=== PATIENT | female | born 1995 | race Caucasian/White ===

== ENCOUNTER 2022-07-28 13:08 | Emergency (ER) | payer BC, MEDICAID, SELFPAY ==
[2022-07-28 13:08] VITALS: BP 125/82; PULSE 107; RESP 18; TEMP 37.6; O2SAT 96; BMI 40.0
--- NOTE | 2022-07-28 13:42 | XRR_ITS ---
PROCEDURE INFORMATION: Exam: XR Chest Exam date and time: 07/28/2022 1:56 PM Age: 26 years old Clinical indication: Cough, fever and wheezing. TECHNIQUE: Imaging protocol: Radiologic exam of the chest. Views: 1 view. COMPARISON: No relevant prior studies available. FINDINGS: Lungs: No pulmonary consolidation. Pleural spaces: No pleural effusion. No pneumothorax. Heart/Mediastinum: The cardiac silhouette is unremarkable. No gross evidence of pneumomediastinum. Bones/joints: No gross fracture. XR/XR chest 1V portable [id number] IMPRESSION: No acute cardiopulmonary abnormality identified.
--- NOTE | 2022-07-28 13:44 | W.ED.URI ---
HPI - URI/Sore Throat General: Chief Complaint: Upper Respiratory Infection Stated Complaint: fever, congestion Time Seen by Provider: 07/28/22 13:33 History of Present Illness: 26-year-old female comes in today with complaints of cough and congestion starting yesterday. Patient's had a fever up to 103 reported from home. Patient does have some wheezing in lung burrell and reports a history of bronchial asthma in her youth. Patient has a child. Patient reports some nausea and vomiting. Associated symptoms: Reports fever(s), nausea and vomiting; Deny chest pain Review of Systems Const: Reports: fever(s) Card: Denies: chest pain Resp: Reports: dyspnea, non-productive cough and wheezing GI: Reports: nausea and vomiting Skin/Breast: Denies: rash [facility] Female Reproductive History: Date of last menstrual period: 06/29/22 Physical Exam Const: COMMON NORMALS: patient oriented x3 HENMT: COMMON NORMALS: TM's normal bilaterally TYMPANIC MEMBRANE: TM's normal bilaterally THROAT: posterior oropharynx abnormal erythema Neck/C-Spine: COMMON NORMALS: no lymphadenopathy Resp: COMMON NORMALS: normal respiratory effort AUSCULTATION: wheezes Cardio: COMMON NORMALS: regular rhythm RATE: tachycardic RHYTHM: regular rhythm Extremity: COMMON NORMALS: normal to inspection Neuro: COMMON NORMALS: patient oriented x3 Skin: COMMON NORMALS: turgor normal GENERAL SKIN EXAM: turgor normal Course Vital Signs: Vital signs: Vital Signs Temperature 99.7 F H 07/28/22 14:25 Pulse Rate 95 07/28/22 14:32 Respiratory Rate 20 H 07/28/22 14:28 Blood Pressure 125/82 07/28/22 14:25 Pulse Oximetry 96 07/28/22 14:28 Oxygen Delivery Id thod 07/28/22 14:28 MDM - URI/Sore Throat Medical Decision Making Patient comes in today for complaints of fever starting last night along with nausea and vomiting cough and congestion. On exam lungs had wheezing throughout all burrell. Skin was warm and dry. Vital signs noted a pulse rate of 107, and temperature of 99.7. Differential diagnosis includes but not limited to viral syndrome, influenza, COVID-19, pneumonia, exacerbation of asthma. Patient does have a history of bronchial asthma in her youth. Influenza was positive for type A. Reviewed exam with patient with recommendations for treatment for mild dehydration with 1 L of IV fluid, Zofran. For exacerbation of asthma due to viral syndrome patient was given 10 mg of dexamethasone and will be continued on albuterol inhaler as needed. Patient was encouraged to drink plenty of fluids use Zofran for nausea vomiting. Patient reported understanding of care plan need for follow-up or return to the ER. Lab Data Radiology Impressions Chest X-Ray 07/28/22 13:42 IMPRESSION: No acute cardiopulmonary abnormality identified. Laboratory Results Influenza Type A Ag positive (Negative) 07/28/22 13:45 Influenza Type B Ag negative (Negative) 07/28/22 13:45 SARS-CoV-2 Ag (Rapid) negative (Negative) 07/28/22 13:45 Discharge Plan Discharge Patient Disposition: Home Clinical Impression: Influenza Condition: Stable Prescriptions: New ondansetron 4 mg tablet,disintegrating 4 mg PO Q8H PRN (Reason: nausea and vomiting) Qty: 10 0RF albuterol sulfate 90 mcg/actuation HFA aerosol inhaler 2 inh inhalation Q4H PRN (Reason: shortness of breath or wheezing) Qty: 16 0RF Discharge Orders: Discharge ED (Routine); Ordered 07/28/22 Ordered By: Skyler Tam Discharge Diet: Usual diet Discharge Activity: Increase activity as tolerated Patient Instructions: Influenza (ED) Activity Restrictions/Additional Instructions: Drink plenty of water and fluids. Use acetaminophen and ibuprofen for pain and fever. Is important to stay well-hydrated. Use albuterol inhaler 1 or 2 puffs every 4 hours as needed for cough or wheezing. Follow-up with primary care in 3 to 4 days for recheck. Usually with the influenza virus your fever will break and 3 to 5 days. It is important to stay as hydrated as possible. Return to the ED for inability to hold fluids down, chest pain, increased shortness of breath, or new concerns. Stand Alone Forms: Work/School Release Coding Level of Care Code ED Master Naval Parachutist for Twin Fwcristi Exam Detailed
[2022-07-28] MEDS: sodium chloride 0.9% 1,000 ML 999 ML IV (14:06)
[2022-07-28] MEDS: ondansetron 2 mg/ML SDV 2 mL 4 MG IVP (14:07)
[2022-07-28] MEDS: dexamethasone 10 mg/mL INJ IVP (14:08)
[2022-07-28 14:23] LABS: Influenza A by IFA positive (Negative); Influenza B by IFA negative (Negative)
[2022-07-28 14:25] VITALS: BP 125/82; PULSE 107; RESP 18; TEMP 37.6; O2SAT 96
[2022-07-28] MEDS: ipratropium-albuterol 3 mL Neb INHALATION (14:27)
[2022-07-28 14:28] VITALS: PULSE 90; RESP 20; O2SAT 96
[2022-07-28 14:32] VITALS: PULSE 95
[2022-07-28 14:32] LABS: SARS Covid-2 Antigen negative (Negative)
[2022-07-28 15:11] VITALS: PULSE 95
== END 2022-07-28 15:12 | disposition home or self-care (01) ==
PROVIDERS: Emergency Provider Nurse Practitioner Family
DX: J10.1 Influenza due to other identified influenza virus with other respiratory manifestations (principal); J45.901 Unspecified asthma with (acute) exacerbation; E86.0 Dehydration
CPT/HCPCS: 71045; 87426; 87804; 94640; 96374; 96375; 99284; J1100; J2405; J7030

== ENCOUNTER 2022-07-30 03:10 | Emergency (ER) | payer BC, MEDICAID, SELFPAY ==
[2022-07-30 03:11] VITALS: BMI 40.0
[2022-07-30 03:16] VITALS: BP 155/66; PULSE 90; RESP 18; TEMP 36.7; O2SAT 97
--- NOTE | 2022-07-30 03:18 | ECG_ITS ---
[facility] Test Date: 2022-07-30 Pat Name: Bambi Vail Department: Room: Gender: Female Scrap Baller: : 1995 Requested By: Joe Ritter Order Number: [id number] Demario MD: Gloria Boucher M.D. Measurements Intervals [place] Rate: 81 P: 14 MT: 143 QRS: 7 QRSD: 95 T: 1 QT: 367 QTc: 427 Interpretive Statements SINUS RHYTHM WITH SINUS ARRHYTHMIA NONSPECIFIC ST & T-WAVE ABNORMALITY No previous ECG available for comparison Electronically Signed On 07-31-2022 12:04:43 WEAVER HAND LOOM by Gloria Boucher M.D. [id number]
--- NOTE | 2022-07-30 03:19 | XRR_ITS ---
PROCEDURE INFORMATION: Exam: XR Chest Exam date and time: 07/30/2022 3:44 AM Age: 26 years old Clinical indication: Cough and shortness of breath; Additional info: SOB TECHNIQUE: Imaging protocol: Radiologic exam of the chest. Views: 1 view. COMPARISON: CR (CHEST, ) 07/28/2022 1:56 PM FINDINGS: Lungs: Normal lung volumes. No interstitial or airspace opacities. Pleural spaces: No pleural effusion. No pneumothorax. Heart/Mediastinum: Normal heart size. Normal mediastinal contour. Midline trachea. Bones/joints: No acute abnormalities. XR/XR chest 1V portable [id number] IMPRESSION: No chest radiographic evidence of acute cardiopulmonary disease.
--- NOTE | 2022-07-30 03:21 | W.ED.SOB ---
HPI - SOB/Dyspnea General: Chief Complaint: Shortness of Breath/Dyspnea Stated Complaint: asthma attack Time Seen by Provider: 07/30/22 03:18 History of Present Illness: HPI Narrative: 26-year-old female with a history of asthma. She presents this morning of worsening shortness of breath. She was seen yesterday, and diagnosed with influenza A. She has been using her inhaler for the past 24 hours without much improvement. She has had a cough that is nonproductive. In route by EMS, she received 125 mg of Solu-Medrol, 0.5 mg of epinephrine subcu, and a DuoNeb treatment. MD elicited complaint: shortness of breath, cough and asthma attack Pertinent past history: asthma Onset (ago): hour(s) Context: recent illness Timing: constant and progressively worsening Severity: moderate Exacerbating factors: lying flat, exertion and coughing Relieving factors: nothing Known history of: asthma Associated symptoms: Reports chest congestion, cough, dizziness and nausea; Deny abdominal pain, chest pain, fever(s) or vomiting Treatment prior to arrival: bronchodilator and other Review of Systems Const: Denies: fever(s) ENMT: Reports: throat pain Card: Denies: chest pain Resp: Reports: dyspnea, non-productive cough and chest congestion GI: Reports: nausea; Denies: abdominal pain or vomiting Neuro: Reports: headache(s) and dizziness [facility] ED Female Reproductive History: Date of last menstrual period: 06/29/22 Physical Exam Const: GENERAL APPEARANCE: cooperative, in distress and ill appearing; not frail appearing HENMT: COMMON NORMALS: normocephalic, atraumatic and Normal external nose present HEAD & SCALP: normocephalic and atraumatic FACE & SINUS: normal facial exam and face symmetric NOSE: Normal external nose present Eye: COMMON NORMALS: Equal, round and reactive pupils present and EOMs intact bilaterally PUPIL: Yes Equal, round and reactive pupils present Neck/C-Spine: COMMON NORMALS: full ROM GENERAL: Yes trachea midline Chest: CHEST: Yes Symmetrical chest wall rise Resp: COMMON NORMALS: clear to auscultation bilaterally EFFORT & INSPECTION: No able to speak in complete sentences, Yes tachypneic, Yes labored and Yes uses accessory muscles AUSCULTATION: clear to auscultation bilaterally and diminished lung sounds Cardio: COMMON NORMALS: regular rhythm RATE: tachycardic RHYTHM: regular rhythm Extremity: COMMON NORMALS: normal to inspection and no pedal edema Neuro: LILIANA COMA SCALE: document GCS findings [place] coma scale eye opening: Spontaneous [place] coma scale verbal response: Orientated Liliana coma scale motor response: Obey commands [place] coma scale total score: 15 Course Vital Signs: Vital signs: Vital Signs Temperature 98.1 F 07/30/22 03:16 Pulse Rate 91 07/30/22 03:26 Respiratory Rate 18 07/30/22 03:23 Blood Pressure 155/66 07/30/22 03:16 Pulse Oximetry 97 07/30/22 03:23 Oxygen Delivery Me thod 07/30/22 03:23 MDM - SOB/Dyspnea Medical Decision Making 26-year-old female. She presents with shortness of breath. She was here yesterday for the same reason. Breathing is much better after Solu-Medrol, epinephrine and DuoNeb in route, albuterol treatment here, magnesium infusion. Respiratory rate is normal now. Saturations are 94 to 98%. Her heart rate has come down. Her EKG shows sinus rhythm with a rate of 81, normal axis, no acute ST changes. She does meet LVH criteria chest x-ray is negative. We will hold for a bit to ensure she does not rebound after the epinephrine, albuterol, etc. We will discharge home on steroids and antivirals given flu positive status. Lab Data : 07/30/22 03:19 07/30/22 03:19 Labs/Radiology: Laboratory Results WBC 5.6 10^3/uL (4.0-10.0) 07/30/22 03:19 RBC 4.06 10^6/uL (4.1-5.3) L 07/30/22 03:19 Hgb 11.4 g/dL (11.5-15.3) L 07/30/22 03:19 Hct 36.0 % (37.0-47.0) L 07/30/22 03:19 MCV 88.7 fl (81-99) 07/30/22 03:19 MCH 28.1 pg (28.0-34.0) 07/30/22 03:19 MCHC 31.7 g/dL (30.0-36.0) 07/30/22 03:19 RDW 14.6 % (12.1-15.1) 07/30/22 03:19 Plt Count 186 10^3/cmm (130-400) 07/30/22 03:19 MPV 11.0 fL (7.4-10.4) H 07/30/22 03:19 Neut % (Auto) 56.4 % 07/30/22 03:19 Lymph % (Auto) 31.8 % 07/30/22 03:19 [place] % (Auto) 10.8 % 07/30/22 03:19 Eos % (Auto) 0.4 % 07/30/22 03:19 Baso % (Auto) 0.2 % 07/30/22 03:19 Neut # (Auto) 3.18 10^3/uL (1.8-7.7) 07/30/22 03:19 Lymph # (Auto) 1.8 10^3/uL (0.8-4.8) 07/30/22 03:19 [place] # (Auto) 0.6 10^3/uL (0.2-0.9) 07/30/22 03:19 Eos # (Auto) 0.0 10^3/uL (0.0-0.8) 07/30/22 03:19 Baso # (Auto) 0.0 10^3/uL (0.0-0.1) 07/30/22 03:19 Nucleated RBC % (auto) 0 % 07/30/22 03:19 Nucleated RBCs # 0.0 /100WBC 07/30/22 03:19 Sodium 136 mmol/L (136-145) 07/30/22 03:19 Potassium 3.5 mmol/L (3.5-5.1) 07/30/22 03:19 Chloride 104 mmol/L (98-107) 07/30/22 03:19 Carbon Dioxide 20 mmol/L (22-29) L 07/30/22 03:19 Anion Gap 15.5 (5-19) 07/30/22 03:19 BUN 19 mg/dL (6-20) 07/30/22 03:19 Creatinine 0.6 mg/dL (0.5-0.9) 07/30/22 03:19 GFR Calculation 120.8 mL/min (90-130) 07/30/22 03:19 Glucose 106 mg/dL (65-115) 07/30/22 03:19 Calculated Osmolality 285 mOsm/kg (285-295) 07/30/22 03:19 Lactic Acid 2.4 mmol/L (0.5-2.2) H 07/30/22 03:19 Calcium 8.6 mg/dL (8.5-10.5) 07/30/22 03:19 Total Bilirubin 0.2 mg/dL (0.15-1.2) 07/30/22 03:19 AST 26 U/L (0-32) 07/30/22 03:19 ALT 33 U/L (0-33) 07/30/22 03:19 Alkaline Phosphatase 110 U/L (35-105) H 07/30/22 03:19 Total Protein 6.6 g/dL (6.6-8.7) 07/30/22 03:19 Albumin 3.6 g/dL (3.5-5.2) 07/30/22 03:19 Globulin 3.0 g/dL (1.3-4.6) 07/30/22 03:19 Discharge Plan Discharge Patient Disposition: Home Clinical Impression: Influenza, Asthma with exacerbation Condition: Stable Prescriptions: New prednisone 20 mg tablet 40 mg PO DAILY Qty: 10 0RF Tamiflu 75 mg capsule 75 mg PO BID 5 Days Qty: 10 0RF No Action ondansetron 4 mg tablet,disintegrating 4 mg PO Q8H PRN (Reason: nausea and vomiting) Qty: 10 0RF albuterol sulfate 90 mcg/actuation HFA aerosol inhaler 2 inh inhalation Q4H PRN (Reason: shortness of breath or wheezing) Qty: 16 0RF Discharge Orders: Discharge ED (Routine); Ordered 07/30/22 Ordered By: Joe Urrutia Discharge Diet: Advance as tolerated Discharge Activity: Increase activity as tolerated Activity Restrictions/Additional Instructions: Use your inhaler every 4 hours while awake scheduled whether short of breath or not for the next 48 hours, then as needed. Other medications as directed. Return for worsening shortness of breath chest discomfort or other concerning symptoms. Coding Level of Care Code ED Purchasing Administrator for Chg Fwd Exam Comprehensive
[2022-07-30 03:23] VITALS: PULSE 78; RESP 18; O2SAT 97
[2022-07-30] MEDS: albuterol 2.5 mg/3 mL Neb INHALATION (03:24)
[2022-07-30 03:26] VITALS: PULSE 91
[2022-07-30] MEDS: LORazepam 2 mg/mL INJ 1 mL 1 MG IVP (03:30)
[2022-07-30] MEDS: ondansetron 2 mg/ML SDV 2 mL 4 MG IVP (03:30)
[2022-07-30] MEDS: magnesium sulfate premix 2 GM/50 ML PIGGYBACK IV (03:30)
[2022-07-30 03:32] LABS: Basophils % 0.2 %; Eosinophils % 0.4 %; Hemoglobin 11.4 g/dL (11.5-15.3); Lymphocytes # 1.8 10^3/uL (0.8-4.8); Lymphocytes % 31.8 %; Mean Corpuscular HGB Conc 31.7 g/dL (30.0-36.0); Mean Corpuscular Hemoglobin 28.1 pg (28.0-34.0); Mean Corpuscular Volume 88.7 fl (81-99); Monocytes # 0.6 10^3/uL (0.2-0.9); Monocytes % 10.8 %; Neutrophils # 3.18 10^3/uL (1.8-7.7); Neutrophils % 56.4 %; Nucleated Red Blood Cells % 0 %; Platelet Count 186 10^3/cmm (130-400); Red Blood Count 4.06 10^6/uL (4.1-5.3); Red Cell Distribution Width 14.6 % (12.1-15.1); White Blood Count 5.6 10^3/uL (4.0-10.0)
[2022-07-30] MEDS: morphine 4 mg/mL SDV 1 mL IVP (03:48)
[2022-07-30 03:51] LABS: Alanine Aminotransferase 33 U/L (0-33); Albumin Level 3.6 g/dL (3.5-5.2); Alkaline Phosphatase 110 U/L (35-105); Blood Urea Nitrogen 19 mg/dL (6-20); Calcium 8.6 mg/dL (8.5-10.5); Carbon Dioxide 20 mmol/L (22-29); Chloride 104 mmol/L (98-107); Glomerular Filtration Rate 120.8 mL/min (90-130); Glucose 106 mg/dL (65-115); Osmolality Calculated 285 mOsm/kg (285-295); Sodium 136 mmol/L (136-145); Total Bilirubin 0.2 mg/dL (0.15-1.2); Total Protein 6.6 g/dL (6.6-8.7)
[2022-07-30 03:52] LABS: Lactic Sepsis W/Reflex 2.4 mmol/L (0.5-2.2)
[2022-07-30 03:53] LABS: Anion Gap 15.5 (5-19); Aspartate Amino Transferase 26 U/L (0-32); Potassium 3.5 mmol/L (3.5-5.1)
[2022-07-30 05:17] LABS: Reflex Lactate Order REFLEX LACTIC ORDERD
== END 2022-07-30 05:24 | disposition home or self-care (01) ==
PROVIDERS: Emergency Provider Emergency Medicine
DX: J11.1 Influenza due to unidentified influenza virus with other respiratory manifestations (principal); J45.901 Unspecified asthma with (acute) exacerbation
CPT/HCPCS: 71045; 80053; 83605; 85025; 93005; 94640; 96365; 96375; 99285; J2060; J2270; J2405; J3475; J7613

== ENCOUNTER 2022-09-20 13:47 | Emergency (ER) | payer BC, MEDICAID, SELFPAY ==
[2022-09-20 13:53] VITALS: BMI 36.6
--- NOTE | 2022-09-20 14:20 | XR_ITS ---
WS: [id number] Right wrist, 3 views, 09/20/2022 Clinical Data: trauma Comparison: None. Findings: No fractures or dislocations are seen. The carpal bones are intact. There is no soft tissue swelling. The distal radius and ulna are not remarkable. XR/XR wrist RT min 3V* [id number] Impression: Negative right wrist.
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
[2022-09-20] MEDS: iohexol 350 mg/mL 500 mL Btl (per mL) IV (14:47)
[2022-09-20 15:16] LABS: Basophils % 0.2 %; Eosinophils % 0.6 %; Hematocrit 33.6 % (37.0-47.0); Hemoglobin 10.5 g/dL (11.5-15.3); Lymphocytes # 1.8 10^3/uL (0.8-4.8); Mean Corpuscular HGB Conc 31.3 g/dL (30.0-36.0); Mean Corpuscular Hemoglobin 27.6 pg (28.0-34.0); Mean Corpuscular Volume 88.2 fl (81-99); Mean Platelet Volume 10.2 fL (7.4-10.4); Monocytes # 0.4 10^3/uL (0.2-0.9); Monocytes % 6.8 %; Neutrophils # 3.89 10^3/uL (1.8-7.7); Neutrophils % 62.9 %; Nucleated Red Blood Cells % 0 %; Platelet Count 214 10^3/cmm (130-400); Red Blood Count 3.81 10^6/uL (4.1-5.3); Red Cell Distribution Width 14.9 % (12.1-15.1); White Blood Count 6.2 10^3/uL (4.0-10.0)
[2022-09-20 15:39] LABS: Alanine Aminotransferase 105 U/L (0-33); Albumin Level 3.9 g/dL (3.5-5.2); Alkaline Phosphatase 122 U/L (35-105); Anion Gap 11.2 (5-19); Aspartate Amino Transferase 75 U/L (0-32); Blood Urea Nitrogen 11 mg/dL (6-20); Carbon Dioxide 26 mmol/L (22-29); Chloride 106 mmol/L (98-107); Globulin 2.8 g/dL (1.3-4.6); Glomerular Filtration Rate 101.1 mL/min (90-130); Glucose 80 mg/dL (65-115); Osmolality Calculated 288 mOsm/kg (285-295); Potassium 3.2 mmol/L (3.5-5.1); Sodium 140 mmol/L (136-145); Total Bilirubin 0.5 mg/dL (0.15-1.2); Total Protein 6.7 g/dL (6.6-8.7)
[2022-09-20 17:02] LABS: Glucose Urine UA Norm (Normal); Ketones Urine Negative (Negative); Protein Urine 1+ (Negative); Urine Appearance Cloudy (CLEAR); Urine Color Yellow (Yellow); pH Urine 6 (5-7)
[2022-09-20 17:03] LABS: Bilirubin Urine Neg (Negative); Blood Urine 2+ (Negative); Leukocyte Esterase Urine 2+ (Negative); Nitrate Urine Positive (Negative); Urobilinogen Urine Norm (Negative)
[2022-09-20 17:04] LABS: Add Urine Microscopic? YES
[2022-09-20 17:07] LABS: Bacteria Urine 4+ /hpf; Mucus Urine 1+ /hpf; RBC Urine 15-25 /hpf (0-2); Squamous Epithelial Cell Urine 0-4 /hpf (0-5); WBC Urine 80-100 /hpf (0-5)
[2022-09-20 17:08] LABS: Add Urine Culture? Yes
[2022-09-20] MEDS: acetaminophen 325 mg Tablet 650 MG PO (17:38)
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
[2022-09-20] MEDS: ciprofloxacin 500 mg Tablet PO (21:23)
[2022-09-20 21:31] VITALS: PULSE 88; RESP 14
== END 2022-09-20 21:33 | disposition home or self-care (01) ==
PROVIDERS: Emergency Provider Emergency Medicine
DX: N39.0 Urinary tract infection, site not specified (principal); S20.219A Contusion of unspecified front wall of thorax, initial encounter; S40.022A Contusion of left upper arm, initial encounter; S40.021A Contusion of right upper arm, initial encounter; S10.93XA Contusion of unspecified part of neck, initial encounter; S00.531A Contusion of lip, initial encounter; Y04.2XXA Assault by strike against or bumped into by another person, initial encounter; Y07.01 Husband, perpetrator of maltreatment and neglect
CPT/HCPCS: 36415; 70496; 70498; 71045; 73110; 80053; 81001; 85025; 87077; 87086; 87186; 87491; 87591; 87661; 99285; Q9967

== ENCOUNTER 2022-10-27 10:08 | Emergency (ER) | payer BC, MEDICAID, SELFPAY ==
[2022-10-27 10:26] VITALS: BP 123/85; PULSE 82; RESP 15; TEMP 36.2; O2SAT 97; BMI 40.2
--- NOTE | 2022-10-27 10:29 | XRR_ITS ---
PROCEDURE INFORMATION: Exam: XR Chest Exam date and time: 10/27/2022 11:08 AM Age: 26 years old Clinical indication: Cough and fever and shortness of breath TECHNIQUE: Imaging protocol: Radiologic exam of the chest. Views: 2 views. COMPARISON: CR XR chest 1V portable [id number] 09/20/2022 7:54 PM FINDINGS: Lungs: Unremarkable. No consolidation. Pleural spaces: Unremarkable. No pleural effusion. No pneumothorax. Heart/Mediastinum: Unremarkable. No cardiomegaly. Bones/joints: Unremarkable. XR/XR chest 2V* [id number] IMPRESSION: No acute findings.
[2022-10-27 12:09] LABS: HCG Qualitative Urine. Negative (Negative)
[2022-10-27 12:13] LABS: Add Urine Microscopic? YES; Bilirubin Urine Neg (Negative); Blood Urine Neg (Negative); Glucose Urine UA Norm (Normal); Ketones Urine Negative (Negative); Leukocyte Esterase Urine Negative (Negative); Nitrate Urine Negative (Negative); Protein Urine Neg (Negative); Specific Gravity, Urine 1.015 (1.005-1.030); Urine Appearance Hazy (CLEAR); Urine Color Yellow (Yellow); Urobilinogen Urine Norm (Negative); pH Urine 6 (5-7)
[2022-10-27 12:20] LABS: WBC Urine 25-40 /hpf (0-5)
[2022-10-27 12:21] LABS: Add Urine Culture? Yes; Bacteria Urine 2+ /hpf; Mucus Urine 1+ /hpf
--- NOTE | 2022-10-27 12:21 | ED_ITS ---
HPI - Female Genitourinary General: Chief complaint: Urogenital-Female Stated complaint: urogenital Time Seen by Provider: 10/27/22 11:02 History of Present Illness: Patient is a 26-year-old female comes to the ED with UTI symptoms. Patient says for the past week she has been having some burning type pain with urination. She states that her urine appears dark in color. Denies any nausea/vomiting or abdominal pain or flank pain. Patient also has been having a fever, nasal congestion and drainage. All of her kids stable her upper respiratory symptoms. She says she has been having nasal drainage and congestion along with cough. She also endorses having a fever as well. Associated symptoms: Deny abdominal pain, headache(s) or nausea Date of Last Menstrual Period: 06/29/22 Review of Systems Const: Reports: fever(s); Denies: chills or fatigue Eyes: Denies: change in vision or eye discomfort ENMT: Reports: nasal discharge and nasal congestion; Denies: throat pain or odynophagia Card: Denies: chest pain, palpitations, edema, swelling of feet/ankles, dyspnea on exertion or orthopnea Resp: Reports: non-productive cough; Denies: dyspnea or productive cough GI: Denies: abdominal pain, nausea, vomiting, diarrhea, constipation or hematochezia : Reports: dysuria; Denies: flank pain or hematuria Musc: Denies: neck pain, back pain or extremity swelling Skin/Breast: Denies: rash or new lesions Neuro: Denies: headache(s), numbness in extremities or weakness in extremities [facility] ED Female Reproductive History: Date of last menstrual period: 06/29/22 Physical Exam Const: COMMON NORMALS: patient oriented x3 HENMT: COMMON NORMALS: normocephalic HEAD & SCALP: normocephalic MOUTH: Normal oral and palatal mucosa present THROAT: posterior oropharynx normal and uvula midline Neck/C-Spine: COMMON NORMALS: supple GENERAL: Yes normal visual inspection Resp: COMMON NORMALS: normal respiratory effort, No retractions, No use of accessory muscles and clear to auscultation bilaterally AUSCULTATION: clear to auscultation bilaterally Cardio: COMMON NORMALS: regular rate, regular rhythm, S1 normal heart sound present, S2 normal heart sound present, No gallops present (Cardio), No clicks present (Cardio), No murmurs present (Cardio) and Peripheral pulses 2+ throughout RATE: regular rate RHYTHM: regular rhythm HEART SOUNDS: S1 normal heart sound present and S2 normal heart sound present PERIPHERAL PULSES: Peripheral pulses 2+ throughout GI: COMMON NORMALS: Normal to inspection, nondistended, normoactive bowel sounds present, Soft to palpation, non-tender and no masses PALPATION: Yes Soft to palpation : COMMON NORMALS: Yes no CVA tenderness BLADDER/KIDNEY EXAM: Yes no CVA tenderness Back/Pelvis: COMMON NORMALS: no CVA tenderness Extremity: COMMON NORMALS: normal to inspection Neuro: COMMON NORMALS: patient oriented x3 GAIT: Yes Normal gait present Skin: GENERAL SKIN EXAM: dry skin Course Vital Signs: Vital signs: Vital Signs Temperature 97.1 F L 10/27/22 10:26 Pulse Rate 87 10/27/22 14:02 Respiratory Rate 16 10/27/22 14:02 Blood Pressure 123/85 10/27/22 10:26 Pulse Oximetry 97 10/27/22 14:02 Oxygen Delivery Me thod 10/27/22 10:26 [facility] - Female Medical Decision Making Patient is a 26-year-old female comes to the ED with UTI symptoms. Patient says for the past week she has been having some burning type pain with urination. She states that her urine appears dark in color. Denies any nausea/vomiting or abdominal pain or flank pain. Patient also has been having a fever, nasal congestion and drainage. All of her kids stable her upper respiratory symptoms. She says she has been having nasal drainage and congestion along with cough. She also endorses having a fever as well. Vitals are stable. Exam is benign. Chest x-ray shows no acute findings. UA shows signs of UTI. hCG urine negative. Patient was diagnosed with viral URI with cough and a UTI. She was discharged home with a prescription for cefdinir. Told to follow-up with her doctor in the next couple days for reevaluation. Return to ED precautions given. Patient understood and agreed with plan. Lab Data I reviewed the patient's lab results. Radiology Impressions Chest X-Ray 10/27/22 10:29 IMPRESSION: No acute findings. Laboratory Results HCG, Qual Negative (Negative) 10/27/22 11:38 Urine Color Yellow (Yellow) 10/27/22 11:38 Urine Appearance Hazy (CLEAR) A 02/04/23 11:38 Urine pH 6 (5-7) 10/27/22 11:38 Ur Specific [place] 1.015 (1.005-1.030) 10/27/22 11:38 Urine Protein Neg (Negative) 10/27/22 11:38 Urine Glucose (UA) Norm (Normal) 10/27/22 11:38 Urine Ketones Negative (Negative) 10/27/22 11:38 Urine Blood Neg (Negative) 10/27/22 11:38 Urine Nitrate Negative (Negative) 10/27/22 11:38 Urine Bilirubin Neg (Negative) 10/27/22 11:38 Urine Urobilinogen Norm mg/dL (Negative) 10/27/22 11:38 Ur Leukocyte Esterase Negative (Negative) 10/27/22 11:38 Urine RBC None /hpf (0-2) 10/27/22 11:38 Urine WBC 25-40 /hpf (0-5) H 10/27/22 11:38 Ur Squamous Epith Cells 5-10 /hpf (0-5) H 10/27/22 11:38 Amorphous Sediment Not Reportable 10/27/22 11:38 Urine Bacteria 2+ /hpf (NONE) H 10/27/22 11:38 Urine Mucus 1+ /hpf 10/27/22 11:38 Discharge Plan Discharge Patient Disposition: Home Clinical Impression: Viral URI with cough Urinary tract infection Qualifiers: Urinary tract infection type: acute cystitis Hematuria presence: with hematuria Qualified Code(s): N30.01 - Acute cystitis with hematuria Condition: Stable Prescriptions: New cefdinir 300 mg capsule 300 mg PO BID 10 Days Qty: 20 0RF No Action buspirone 10 mg Tablet 10 mg PO TID PRN (Reason: Anxiety) Discharge Orders: Discharge ED (Routine); Ordered 10/27/22 Ordered By: Stone Soto Discharge Diet: Regular Discharge Activity: Increase activity as tolerated Patient Instructions: Urinary Tract Infection in Women (DC) Activity Restrictions/Additional Instructions: Follow-up with medical provider as directed in the next 5 to 7 days for reevaluation. Take medications as prescribed. Drink plenty fluids and stay hydrated. Take [id number] Tylenol or Motrin for any fevers. Return to the ER or your medical provider if condition worsens. Please read and understand discharge instructions. Thank you for choosing [facility] for your healthcare needs today. Please realize this is an emergency room and that we are providing you with a medical screening exam and this may not be complete and all inclusive of all the testing and or work up that you may need to determine your ailment or severity of your illness. It is very important that you follow up as instructed or that you return to the Emergency Department should you have concerns or if your condition changes or worsens in any way. 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
[2022-10-27 14:02] VITALS: PULSE 87; RESP 16; O2SAT 97
== END 2022-10-27 14:03 | disposition home or self-care (01) ==
PROVIDERS: Emergency Provider Physician Assistant
DX: N30.01 Acute cystitis with hematuria (principal)
CPT/HCPCS: 71046; 81001; 81025; 87077; 87086; 87186; 99283

== ENCOUNTER → 2023-01-10 09:18 | Outpatient (BNVA) | payer BC, SELFPAY | PROVIDERS: Visit Provider Nurse Practitioner Family | DX: J02.9 Acute pharyngitis, unspecified (principal) | CPT/HCPCS: 87880 ==

== ENCOUNTER 2023-09-12 19:51 | Emergency (ER) | payer MEDICAID, SELFPAY ==
[2023-09-12 20:03] VITALS: BP 138/81; PULSE 99; RESP 16; TEMP 36.9; O2SAT 98
--- NOTE | 2023-09-12 20:25 | ED_ITS ---
HPI - Female Genitourinary 2 General: Chief complaint: Urogenital-Female Stated complaint: vaginal bleeding, cramping, lactating Time Seen by Provider: 09/12/23 20:09 History of Present Illness: 27-year-old female comes in today for co mplaints of increased vaginal bleeding. Patient reports that last month she did not have a period but this month she is having heavier than normal. With increased bleeding going through 1 tampon an hour over the last 3 hours. Patient also reports some . Patient appears nontoxic. Patient appears in no acute distress. Patient has a history of major depressive disorder. Patient takes no routine medicines. Associated symptoms: Deny abdominal pain Review of Systems 2 General: Reports: 10 or more systems reviewed and unremarkable except in HPI and below GI: Denies: abdominal pain : Reports: vaginal bleeding; Denies: difficulty voiding Skin/Breast: Denies: rash PFSH ED 2 PFSH: Medical History Psychiatric care Physical Exam 2 Const: COMMON NORMALS: alert HENMT: COMMON NORMALS: normocephalic HEAD & SCALP: normocephalic Neck/C-Spine: COMMON NORMALS: full ROM Chest: COMMONS NORMALS: normal inspection of the chest Resp: COMMON NORMALS: normal respiratory effort Cardio: COMMON NORMALS: regular rate RATE: regular rate GI: COMMON NORMALS: Soft to palpation PALPATION: Yes Soft to palpation Extremity: COMMON NORMALS: full ROM Neuro: SENSORIUM/ORIENTATION: Yes alert Skin: COMMON NORMALS: turgor normal GENERAL SKIN EXAM: turgor normal Course 2 Vital Signs: Vital signs: Vital Signs Temperature 98.4 F 09/12/23 20:03 Pulse Rate 103 H 09/12/23 20:46 Respiratory Rate 18 09/12/23 20:46 Blood Pressure 144/96 09/12/23 20:46 Pulse Oximetry 98 09/12/23 20:46 Oxygen Delivery Me thod Room Air 09/12/23 20:46 MDM - Female Medical Decision Making Patient comes in today with abnormal vaginal bleeding and . Patient appears nontoxic. Patient appears no acute distress. Patient denies any routine medicines. Patient appears nontoxic. Vital signs are normal except for some mild elevation in blood pressure. Differential diagnosis includes but not limited to hypothyroidism, , malingering, ovarian tumor, pituitary tumor, idiopathic galactorrhea. Recommend patient follow-up with primary care for further evaluation and treatment. CBC and CMP were unremarkable. hCG was negative. TSH was normal. Patient reported understanding of care plan and need for follow-up or return to the ER. Lab Data 09/12/23 20:25 09/12/23 20:25 Laboratory Results WBC 6.93 10^3/uL (3.29-11.43) 09/12/23 20: RBC 3.95 10^6/uL (3.85-5.65) 09/12/23 20: Hgb 10.70 g/dL (11.27-16.99) L 09/12/23 20: Hct 33.4 % (36-47) L 09/12/23 20: MCV 84.6 fl (85-98) L 09/12/23 20: MCH 27.1 pg (27-33) 09/12/23 20: MCHC 32.0 g/dL (30-55) 09/12/23 20: RDW 14.7 % (12.1-15.1) 09/12/23 20: Plt Count 232 10^3/cmm (157-399) 09/12/23 20: MPV 10.4 fL (7.4-10.4) 09/12/23 20: Neut % (Auto) 66.5 % 09/12/23 20: Lymph % (Auto) 26.1 % 09/12/23 20:25 Page % (Auto) 4.9 % 09/12/23 20: Eos % (Auto) 1.6 % 09/12/23 20: Baso % (Auto) 0.3 % 09/12/23 20: Neut # (Auto) 4.61 10^3/uL (1.8-7.7) 09/12/23 20: Lymph # (Auto) 1.8 10^3/uL (0.8-4.8) 09/12/23 20:25 Page # (Auto) 0.3 10^3/uL (0.2-0.9) 09/12/23 20:25 Eos # (Auto) 0.1 10^3/uL (0.0-0.8) 09/12/23 20:25 Baso # (Auto) 0.0 10^3/uL (0.0-0.1) 09/12/23 20:25 Nucleated RBC % (auto) 0 % 09/12/23 20:25 Nucleated RBCs # 0.0 /100WBC 09/12/23 20:25 Sodium 141 mmol/L (136-145) 09/12/23 20:25 Potassium 3.9 mmol/L (3.5-5.1) 09/12/23 20:25 Chloride 106 mmol/L (98-107) 09/12/23 20:25 Carbon Dioxide 25 mmol/L (22-29) 09/12/23 20:25 Anion Gap 13.9 (5-19) 09/12/23 20:25 BUN 13 mg/dL (6-20) 09/12/23 20:25 Creatinine 0.6 mg/dL (0.5-0.9) 09/12/23 20:25 GFR Calculation 119.9 mL/min (90-130) 09/12/23 20:25 Glucose 136 mg/dL (65-115) H 09/12/23 20:25 Calculated Osmolality 294 mOsm/kg (285-295) 09/12/23 20:25 Calcium 8.9 mg/dL (8.5-10.5) 09/12/23 20:25 Total Bilirubin 0.2 mg/dL (0.15-1.2) 09/12/23 20:25 AST 13 U/L (0-32) 09/12/23 20:25 ALT 21 U/L (0-33) 09/12/23 20:25 Alkaline Phosphatase 92 U/L (35-105) 09/12/23 20:25 Total Protein 7.0 g/dL (6.6-8.7) 09/12/23 20:25 Albumin 4.2 g/dL (3.5-5.2) 09/12/23 20:25 Globulin 2.8 g/dL (1.3-4.6) 09/12/23 20:25 TSH 2.59 uIU/mL (0.27-4.20) 09/12/23 20:25 HCG, Qual Negative (Negative) 09/12/23 20:25 No radiology studies performed this visit Discharge Plan Discharge Patient Disposition: Home Clinical Impression: Abnormal uterine bleeding (AUB) Condition: Stable Prescriptions: New tranexamic acid 650 mg tablet 650 mg PO TID 6 Days Qty: 18 0RF No Action prazosin 5 mg capsule 5 mg PO .HS Qty: 30 1RF trazodone 50 mg tablet 100 mg PO .HS PRN (Reason: insomnia) Qty: 60 1RF buspirone 10 mg Tablet 10 mg PO TID PRN (Reason: Anxiety) Discharge Orders: Discharge ED (Routine); Ordered 09/12/23 Ordered By: Skyler Tam Discharge Diet: Usual diet Discharge Activity: Increase activity as tolerated Patient Instructions: Abnormal (Dysfunctional) Uterine Bleeding (ED) Activity Restrictions/Additional Instructions: Home and rest. Use acetaminophen and ibuprofen as needed for pain. Fill prescription for tranexamic acid and take 1 tablet 3 times a day for the next 6 days for continued bleeding. Drink plenty water and fluids. Follow-up with primary care. Return to ED for new concerns. Case management will contact you regarding follow-up appointment with primary care. Coding Level of Care Code ED Receiving Checker 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
[2023-09-12 20:35] LABS: Basophils % 0.3 %; Eosinophils # 0.1 10^3/uL (0.0-0.8); Eosinophils % 1.6 %; Hematocrit 33.4 % (36-47); Lymphocytes # 1.8 10^3/uL (0.8-4.8); Lymphocytes % 26.1 %; Mean Corpuscular Hemoglobin 27.1 pg (27-33); Mean Corpuscular Volume 84.6 fl (85-98); Mean Platelet Volume 10.4 fL (7.4-10.4); Monocytes # 0.3 10^3/uL (0.2-0.9); Monocytes % 4.9 %; Neutrophils # 4.61 10^3/uL (1.8-7.7); Neutrophils % 66.5 %; Nucleated Red Blood Cells % 0 %; Platelet Count 232 10^3/cmm (157-399); Red Blood Count 3.95 10^6/uL (3.85-5.65); Red Cell Distribution Width 14.7 % (12.1-15.1); White Blood Count 6.93 10^3/uL (3.29-11.43)
[2023-09-12 20:46] VITALS: BP 144/96; PULSE 103; RESP 18; O2SAT 98
[2023-09-12 20:55] LABS: HCG, Serum Qual Negative (Negative)
[2023-09-12 21:01] LABS: Alanine Aminotransferase 21 U/L (0-33); Albumin Level 4.2 g/dL (3.5-5.2); Alkaline Phosphatase 92 U/L (35-105); Anion Gap 13.9 (5-19); Aspartate Amino Transferase 13 U/L (0-32); Blood Urea Nitrogen 13 mg/dL (6-20); Calcium 8.9 mg/dL (8.5-10.5); Carbon Dioxide 25 mmol/L (22-29); Chloride 106 mmol/L (98-107); Globulin 2.8 g/dL (1.3-4.6); Glomerular Filtration Rate 119.9 mL/min (90-130); Glucose 136 mg/dL (65-115); Osmolality Calculated 294 mOsm/kg (285-295); Potassium 3.9 mmol/L (3.5-5.1); Sodium 141 mmol/L (136-145); Thyroid Stimulating Hormone 2.59 uIU/mL (0.27-4.20); Total Bilirubin 0.2 mg/dL (0.15-1.2)
[2023-09-12 21:21] VITALS: BP 147/107; PULSE 95; RESP 16; O2SAT 94
[2023-09-12 21:22] VITALS: BP 147/107; PULSE 95; RESP 16; O2SAT 94
--- NOTE | 2023-09-16 11:26 | DCPLANNER ---
Sent message to [facility]. 09/16/23 at [id number]
== END 2023-09-12 21:24 | disposition home or self-care (01) ==
PROVIDERS: Emergency Medicine; Emergency Provider Nurse Practitioner Family
DX: N93.9 Abnormal uterine and vaginal bleeding, unspecified (principal)
CPT/HCPCS: 36415; 80053; 84443; 84703; 85025; 99283

== ENCOUNTER 2023-12-01 11:26 | Emergency (ER) | payer MEDICAID, SELFPAY ==
[2023-12-01 11:31] VITALS: BP 139/91; PULSE 69; RESP 18; TEMP 36.8; O2SAT 98; BMI 42.7
--- NOTE | 2023-12-01 11:59 | CTR_ITS ---
PROCEDURE INFORMATION: Exam: CT Maxillofacial With Contrast; Mandible Exam date and time: 12/01/2023 11:25 AM Age: 28 years old Clinical indication: Jaw pain; Additional info: Concern for abcess, CT to evaluate bone envolvment TECHNIQUE: Imaging protocol: Computed tomography maxillofacial with intravenous contrast. Exam focused on the mandible. Radiation optimization: All CT scans at this facility use at least one of these dose optimization techniques: automated exposure control; mA and/or kV adjustment per patient size (includes targeted exams where dose is matched to clinical indication); or iterative reconstruction. Contrast material: OMNI 350; Contrast volume: 80 ml; Contrast route: INTRAVENOUS (IV); COMPARISON: CT angio headneck* [id number] 09/20/2022 2:43 PM RADIATION DOSE METRICS: Total DLP (mGy-cm): 589.58 FINDINGS: Bones/joints: Mandible is unremarkable. No acute fracture. Paranasal sinuses: There is mild mucosal disease of the right frontal sinus. Soft tissues: Unremarkable. CT/CT facial bones w con [id number] IMPRESSION: No collections are seen to suggest abscess formation.
--- NOTE | 2023-12-01 12:03 | ED_ITS ---
HPI - Dental/Oral 2 General: Chief complaint: Dental/Oral Stated complaint: mouth pain Time Seen by Provider: 12/01/23 11:53 History of Present Illness: The patient presents with a chief complaint of severe gum pain in the mouth. The pain began approximately six months ago, initially presenting as a small pimple- like bump that has gradually increased in size. The patient reports that the pain has worsened significantly in the past two weeks, describing it as pulsating when biting down. The patient also mentions the presence of another smaller bump in the mouth. The patient has attempted self-treatment with Tylenol, Ibuprofen, oil pulling, Listerine, and hydrogen peroxide, but without relief. The patient does not have a dentist or primary care physician due to a lack of insurance. The patient also reports swelling in the left nostril and painful lymph nodes. The patient experiences a burning sensation in the affected area, which is localized to one side of the mouth. The patient is concerned about the possibility of a dental abscess and is considering a CT scan to determine the cause of the symptoms. Review of Systems 2 General: Reports: 10 or more systems reviewed and unremarkable except in HPI and below PFSH ED 2 PFSH: Medical History Psychiatric care Physical Exam 2 Const: COMMON NORMALS: no acute distress, patient oriented x3, healthy appearing, alert and well nourished HENMT: COMMON NORMALS: normocephalic HEAD & SCALP: normocephalic MOUTH: Abnormal oral and palatal mucosa present vesicles (Behind incisors and anterior distal left to the incisors); no ulcerations and no white patches and tongue abnormal Eye: COMMON NORMALS: EOMs intact bilaterally Neck/C-Spine: COMMON NORMALS: full ROM and supple Resp: COMMON NORMALS: normal respiratory effort, No retractions and clear to auscultation bilaterally AUSCULTATION: clear to auscultation bilaterally Cardio: COMMON NORMALS: regular rate, regular rhythm, No gallops present (Cardio) and No murmurs present (Cardio) RATE: regular rate RHYTHM: r egular rhythm GI: COMMON NORMALS: Soft to palpation and non-tender PALPATION: Yes Soft to palpation Extremity: GENERAL: Yes normal exam except as noted Neuro: COMMON NORMALS: patient oriented x3 SENSORIUM/ORIENTATION: Yes alert Skin: COMMON NORMALS: no rashes or lesions noted GENERAL SKIN EXAM: no rashes or lesions noted Course 2 Vital Signs: Vital signs: Vital Signs Temperature 98.2 F 12/01/23 11:31 Pulse Rate 69 12/01/23 11:31 Respiratory Rate 18 12/01/23 11:31 Blood Pressure 139/91 12/01/23 11:31 Pulse Oximetry 98 12/01/23 11:31 Oxygen Delivery Me thod Room Air 12/01/23 11:31 MDM - Dental/Oral Medical Decision Making 20-year-old female presented to the emergency department for evaluation of lower jaw pain. Upon physical exam she has vesicles midline anterior and posterior part of the oral mucosa on the mandible. Physical exam and CT ruled out dental abscess. These are consistent with varicella infection. Discussed the differential diagnosis with the patient. She is in agreement to take acyclovir for treatment. Instructed to follow-up with her PCM next week. She is concerned that she will not be able to see her PCM secondary to no insurance. Discussed resources with the patient for insurance, patient stated she would work to get insurance. Patient discharged home in good condition. Return precautions discussed. Lab Data 12/01/23 12:[address] 12/01/23 11:59 IMPRESSION: No collections are seen to suggest abscess formation. 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
[2023-12-01] MEDS: lidocaine 2% viscous 15 mL UDC MUCOUS MEM (12:23)
[2023-12-01] MEDS: iohexol 350 mg/mL 500 mL Btl (per mL) IV (12:28)
[2023-12-01 12:38] LABS: Anion Gap 15.9 (5-19); Blood Urea Nitrogen 15 mg/dL (6-20); Calcium 8.5 mg/dL (8.5-10.5); Carbon Dioxide 24 mmol/L (22-29); Chloride 103 mmol/L (98-107); Creatinine Clr Calc Pharmacy 191.7656; Glomerular Filtration Rate 146.9 mL/min (90-130); Glucose 91 mg/dL (65-115); Osmolality Calculated 288 mOsm/kg (285-295); Potassium 3.9 mmol/L (3.5-5.1); Sodium 139 mmol/L (136-145)
== END 2023-12-01 13:08 | disposition home or self-care (01) ==
PROVIDERS: Emergency Provider General Practice
DX: B00.9 Herpesviral infection, unspecified (principal)
CPT/HCPCS: 70487; 80048; 99285; Q9967

== ENCOUNTER 2025-06-17 13:40 | Emergency (ER) | payer SELFPAY ==
[2025-06-17 13:49] VITALS: BP 151/97; PULSE 113; RESP 26; TEMP 36.8; O2SAT 97; BMI 45.7
--- NOTE | 2025-06-17 13:57 | W.ED.PSYCHS ---
HPI - Psych General: Chief Complaint: Psychiatric Symptoms Stated Complaint: MHE Time Seen by Provider: 06/17/25 13:43 History of Present Illness: Patient is a 29-year-old female without medical issues, presents to the ED with sadness. She is crying, hardly able to talk, and has her little girl that appears to be about 2 years old on her lap. She states she has 5 children, and she is stressed out, and her mental health is very bad. She denies suicide at this time. She would like to calm down and discuss further, however she is denying any type of suicide concern, plan, or ideas, as well as no homicidal ideas. Associated symptoms: Reports depression Related Data Previous Rx's ?Medication ?Instructions ?Recorded olanzapine 5 mg tablet (Zyprexa) 5 mg PO QPM #30 tabs 06/17/25 Allergies Allergy/AdvReac Type Severity Reaction Status Date / Time No Known Allergies Allergy Verified 12/01/23 11:31 Review of Systems Const: Denies: fever(s) or chills Eyes: Denies: change in vision or blurry vision ENMT: Denies: throat pain or mouth pain Card: Denies: chest pain or palpitations Resp: Denies: dyspnea or non-productive cough GI: Reports: nausea; Denies: abdominal pain or vomiting : Denies: flank pain or difficulty voiding Musc: Denies: neck pain or back pain Neuro: Denies: headache(s), numbness in extremities, weakness in extremities, sensory changes, lack of coordination or difficulty walking Psych: Reports: anxiety, depression, hopelessness, irritability and difficulty concentrating Physical Exam Const: COMMON NORMALS: no acute distress, patient oriented x3, healthy appearing, alert and well nourished GENERAL APPEARANCE: well kempt HENMT: COMMON NORMALS: normocephalic HEAD & SCALP: normocephalic Eye: COMMON NORMALS: EOMs intact bilaterally Neck/C-Spine: COMMON NORMALS: full ROM and supple Resp: COMMON NORMALS: normal respiratory effort, No retractions and clear to auscultation bilaterally AUSCULTATION: clear to auscultation bilaterally Cardio: COMMON NORMALS: regular rate, regular rhythm, No gallops present (Cardio) and No murmurs present (Cardio) RATE: regular rate RHYTHM: regular rhythm GI: COMMON NORMALS: Soft to palpation and non-tender PALPATION: Yes Soft to palpation : COMMON NORMALS: Yes no CVA tenderness BLADDER/KIDNEY EXAM: Yes no CVA tenderness Back/Pelvis: COMMON NORMALS: no CVA tenderness Extremity: GENERAL: Yes normal exam except as noted Neuro: COMMON NORMALS: patient oriented x3 SENSORIUM/ORIENTATION: Yes alert Psych: COMMON NORMALS: Normal thought process present, cooperative, speech normal, activity/motor behavior normal, denies hallucinations, denies homicidal ideation and denies suicidal ideation APPEARANCE: Yes well kempt ATTITUDE: Yes agitated SPEECH: Yes normal speech MOOD & AFFECT: Yes sad and Yes tearful THOUGHT PROCESS: Normal thought process present THOUGHT CONTENT: Yes Normal thought content present, No Suicidality present and No Homicidality present ATTENTION/CONCENTRATION: Yes attention grossly intact INSIGHT: Limited insight present (Psych) (Just cries the entire evaluation; however denies SI) JUDGEMENT: Good judgement present (Psych) Skin: COMMON NORMALS: no rashes or lesions noted GENERAL SKIN EXAM: no rashes or lesions noted Course Vital Signs: Vital signs: Vital Signs Temperature 98.3 F 06/17/25 13:49 Pulse Rate 113 H 06/17/25 13:49 Respiratory Rate 26 H 06/17/25 13:49 Blood Pressure 151/97 06/17/25 13:49 Pulse Oximetry 97 06/17/25 13:49 Oxygen Delivery Me thod Room Air 06/17/25 13:49 MDM - Psych Medical Decision Making 29-year-old female that presents crying, however denies any suicide intent. She states her mental health is bad, she is red then, and has 5 children to herself that no one can help her with. She has 1 child with her as well. Certainly this young woman needs a respite, and her mental health appears to be challenging, however she does not appear to be suicidal. She does not talk in a tangential way. She is sad, however she is not circling, and does appear to be linear with her sadness. Will give her Zyprexa Zydis and reevaluate her. Medical Records I reviewed the patient's medical records. Lab Data No labs No radiology studies performed this visit Discharge Plan Discharge Patient Disposition: Home Clinical Impression: Acute anxiety Condition: Stable Prescriptions: New olanzapine [Zyprexa] 5 mg tablet 5 mg PO QPM Qty: 30 0RF Discharge Orders: Discharge ED (Routine); Ordered 06/17/25 Ordered By: Marilou Bravo Discharge Diet: Usual diet Discharge Activity: Increase activity as tolerated Patient Instructions: Anxiety (ED), Patient Portal & Nathanael Instructions Activity Restrictions/Additional Instructions: Your medication has been sent to the pharmacy. Make sure you tell them to utilize the 99 [employer]ahrenheit coupon to save yourself some money. -Recommend following up with behavioral health clinic. Call for an appointment or go early in the morning. This is over by michael here in [facility]. -Do not take more than twice daily. You may take this at night, or if you have acute anxiety. You may also break in half and take a half of 1, just do not exceed 2 a day. - Return to ED for again worsening symptoms. Print Language: Niuean Coding Level of Care Code ED Teletype Or [place] [employer] 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
== END 2025-06-17 15:28 | disposition home or self-care (01) ==
PROVIDERS: Emergency Provider Physician Assistant
DX: F41.8 Other specified anxiety disorders (principal)
CPT/HCPCS: 99283; J9999